=== PATIENT | male | born 1935 | race Caucasian/White ===

== ENCOUNTER 2016-08-23 10:25 | Day surgery (SDC) | payer MEDICARE ==
[~2016-08-23] VITALS: Ht 172.7 cm; Wt 88.0 kg
[~2016-08-23 10:25] MED LIST: 0.9% Sodium Chloride 1,000 ML IV PRN; AMLO10TA3 PO; ASPI-973 PO; ATOR80TA PO; CHOL100045 PO; CLOP75TA28 PO; CLOP75TA3 PO; DOCU250C2 PO; DONE10TA5 PO; DONE5TAB30 PO; FISH1CAP15 PO; HYDR25TA4 PO; LOSA100T29 PO; MECL-114 PO; MEMA5TAB PO; MULT-1018 PO; Sodium Chloride LOK Flush 10 mL Syringe IV PRN; TAMS0.4C98 PO; fentaNYL-PF 50 mCg/mL 2 mL Inj IVPUSH PRN
[2016-08-23 10:48] VITALS: BP 138/75; PULSE 65; RESP 15; O2SAT 98
[2016-08-23] MEDS ORDERED: 0.9% Sodium Chloride 1,000 ML IV ONE (12:29)
[2016-08-23 13:12] VITALS: BP 109/53; PULSE 74; RESP 14; O2SAT 97
[2016-08-23 13:27] VITALS: BP 110/57; PULSE 62; RESP 12; O2SAT 99
[2016-08-23 13:29] VITALS: BP 139/87; PULSE 69; RESP 12; O2SAT 98
--- NOTE | 2016-08-23 19:57 | ENDO ---
[address] [address] ENDOSCOPY PROCEDURE PATIENT: ARLIN SANDHU : 1935 MR#: [id number] ADMIT: 08/23/2016 JOB ID: [id number] DATE: 08/23/2016 PRIMARY PROVIDER: Barak Gipson MD PROCEDURE: 1. Colonoscopy. 2. Hot snare polypectomy and hot forceps application. INDICATIONS: An 81-year-old male with a personal history of colon polyps returns for surveillance. EQUIPMENT: PCF H 180 AL. SEDATION: 1. 2 mg Versed. 2. 50 mcg fentanyl. COMPLICATIONS: None identified. BOWEL PREPARATION: Fair, adequate exam. PROCEDURE INFORMATION: After the risks and benefits were explained, written and verbal informed consent was obtained. The patient was brought into the endoscopy suite and placed into the left lateral decubitus position. Sedation was achieved using the above-stated medications with the addition of oxygen via nasal cannula. A digital rectal examination was accomplished. Grade 3 and grade 4, nonbleeding, nonthrombosed hemorrhoids were noted. The scope was introduced into the rectum and advanced under direct visualization to the level of the cecum, as identified by the appendiceal orifice and ileocecal valve. The scope was slowly withdrawn to carefully examine the mucosa for any defects or lesions. Retroflexed views were accomplished in the rectum. The colon was decompressed. The scope removed from the patient who tolerated the procedure well. FINDINGS: In the ascending colon, there was a sessile, perhaps 8 x 4 mm, flat polyp removed with hot snare. There was a small fragment that seemed to be left over. After our initial snare, we had to take a 2nd hot snare piece from this location. I then touched up a little residual mild bleeding with the hot forceps. There was a second polyp that was closeby in the ascending colon, perhaps about 5 mm in size, flat, subtle. Hot snare was utilized. A small fragment of this polyp seemed to escape the clutches of the snare and we ablated this with the hot forceps as well. No other significant pathology was appreciated throughout including retroflexed views from within the rectum. ENDOSCOPIC DIAGNOSES: 1. Colon polyps. 2. Hemorrhoids. RECOMMENDATIONS: 1. Await histopathology. 2. Consider repeat colonoscopy in three years' time considering the only fair bowel prep today. 3. I would recommend continuing to hold the Plavix for perhaps another three or four days.
--- NOTE | 2016-08-24 14:08 | PATH ---
SURGICAL PATHOLOGY Attending Physician:Dorene Morris CASE STATUS: Signed Out PATIENT NAME: ARLIN ASNDHU PID: [id number] : 1935 DATE COLLECTED:08/23/2016 21:30 SPECIMEN: Colon, Biopsy CLINICAL HISTORY: 1). COLON POLYPS FINAL DIAGNOSIS: 1.COLON POLYPS: TUBULAR ADENOMA, MULTIPLE FRAGMENTS. ICD10 CODE D12.6 GROSS DESCRIPTION: The specimen is received in one formalin filled container labeled with the patient's name, sublabeled "colon polyps" and consists of multiple portions of tissue which aggregate to 0.4 x 0.4 x 0.3 CM. The specimen is entirely submitted in one cassette. 08/23/2016 [facility] MICRO DESCRIPTION: See diagnosis. ICD-9 CODES: CPT CODES: 1: 83899 Electronically Signed Out Belinda Rodriguez MD [facility] Pathology [facility], [place] [address] Technical component performed at [facility], [address] [place] [address] Ave[address], [place], [address]
[2016-10-29] MEDS ORDERED: NAM10 PO (11:58)
[2016-10-29] MEDS ORDERED: CETI5TAB28 PO (11:58)
[2016-10-29] MEDS ORDERED: NAPR220C11 PO (11:58)
== END 2016-08-23 23:59 | disposition home or self-care (01) ==
LOC: END 10:25
PROVIDERS: ATTEND Internal Medicine Gastroenterology
DX: Z12.11 Encounter for screening for malignant neoplasm of colon (principal); D12.2 Benign neoplasm of ascending colon; K64.2 Third degree hemorrhoids; K64.3 Fourth degree hemorrhoids; Z86.010 Personal history of colon polyps; I12.9 Hypertensive chronic kidney disease with stage 1 through stage 4 chronic kidney disease, or unspecified chronic kidney disease; E78.5 Hyperlipidemia, unspecified; N40.0 Benign prostatic hyperplasia without lower urinary tract symptoms; G47.33 Obstructive sleep apnea (adult) (pediatric); Z86.73 Personal history of transient ischemic attack (TIA), and cerebral infarction without residual deficits; N18.2 Chronic kidney disease, stage 2 (mild); K21.9 Gastro-esophageal reflux disease without esophagitis; G31.84 Mild cognitive impairment of uncertain or unknown etiology; K44.9 Diaphragmatic hernia without obstruction or gangrene; M10.9 Gout, unspecified; E55.9 Vitamin D deficiency, unspecified; E66.9 Obesity, unspecified; Z68.32 Body mass index [BMI] 32.0-32.9, adult; Z79.02 Long term (current) use of antithrombotics/antiplatelets
CPT/HCPCS: 45385; 88305; G0500; J7030

== ENCOUNTER 2016-11-01 12:47 | Day surgery (SDC) | payer MEDICARE ==
[~2016-11-01] VITALS: Ht 172.7 cm; Wt 88.5 kg
[~2016-11-01 12:47] MED LIST changes: -0.9% Sodium Chloride 1,000 ML IV PRN; -ASPI-973 PO; +CETI5TAB28 PO; -CLOP75TA28 PO; -DOCU250C2 PO; -DONE5TAB30 PO; -MECL-114 PO; -MEMA5TAB PO; +NAM10 PO; +NAPR220C11 PO
[2016-11-01 13:56] VITALS: BP 122/74; PULSE 64; O2SAT 96
[2016-11-01] MEDS: 0.9% Sodium Chloride 1,000 ML IV SCH ×2 (14:13→14:36)
[2016-11-01 14:39] VITALS: BP 122/70; PULSE 62; RESP 15; O2SAT 92
[2016-11-01 14:50] VITALS: BP 127/73; PULSE 62; RESP 15; O2SAT 94
[2016-11-01 15:00] VITALS: BP 134/68; PULSE 60; RESP 15; O2SAT 96
--- NOTE | 2016-11-01 23:48 | ENDO ---
[address] [address] ENDOSCOPY PROCEDURE PATIENT: ARLIN SANDHU : 1935 MR#: [id number] ADMIT: 11/01/2016 JOB ID: [id number] PRIMARY PROVIDER: Barak Gipson MD PROCEDURE: Esophagogastroduodenoscopy with biopsy. INDICATIONS: An 81-year-old male with symptoms of intermittent dysphagia. Improved with PPI. EQUIPMENT: GIF-Q180. SEDATION: 1.5 mg Versed, 50 mcg fentanyl. COMPLICATIONS: None identified. PROCEDURE INFORMATION: After the risks and benefits were explained, written and verbal informed consent was obtained. The patient was brought into the endoscopy suite and placed into the left lateral decubitus position. Sedation was achieved using the above-stated medications with the addition of oxygen via nasal cannula and lidocaine swish and swallow. The scope was introduced into the mouth through the bite block, and advanced to the second portion of the duodenum. The scope was slowly withdrawn to carefully examine the mucosa for any defects or lesions. Retroflexed views were accomplished in the stomach. The stomach was decompressed, the scope removed from the patient who tolerated the procedure well. FINDINGS: 1. Duodenum: No significant pathology was identified from the bulb through to the second portion. 2. Stomach: The patient had some scattered erosive changes throughout. Minimal diffuse gastropathy. No ulcers. No mass lesions. No outlet obstruction. Random biopsy was taken for exclusion of Helicobacter or other pathology. Retroflexed views of the LES disclosed sliding hiatal hernia. 3. Esophagus: The squamocolumnar junction correlated with the top of the gastric folds. I did not visually see the Schatzki's ring at all during today's case. The GEJ was at about 39 cm from the incisors. The pinchcock was at about 42 cm from the incisors. No acute erosive changes. No strictures. No mass lesions. ENDOSCOPIC DIAGNOSES: 1. Sliding hiatal hernia. 2. Mild erosive gastropathy. RECOMMENDATIONS: 1. Await histopathology. 2. Continue proton pump inhibitor therapy. 3. Follow up on clinical results in the next six weeks or so in my office.
--- NOTE | 2016-11-03 13:52 | PATH ---
SURGICAL PATHOLOGY Attending Physician:Dorene Morris CASE STATUS: Signed Out PATIENT NAME: ARLIN SANDHU PID: [id number] : 1935 DATE COLLECTED:11/01/2016 00:00 SPECIMEN: Gastric, Biopsy CLINICAL HISTORY: DYSPHAGIA, GASTRIC EROSIONS 1). GASTRIC BIOPSY FINAL DIAGNOSIS: 1.GASTRIC BIOPSY: MINIMAL CHRONIC GASTRITIS INVOLVING FUNDIC MUCOSA. Negative for definitive evidence of epithelial erosion. Negative for evidence of Helicobacter. Negative for intestinal metaplasia. Negative for dysplasia and malignancy. ICD10 K29.70 GROSS DESCRIPTION: The specimen is received in one formalin filled container labeled with the patient's name, sublabeled "gastric" and consists of a 0.2 x 0.2 x 0.2 CM portion of tissue which is entirely submitted in one cassette. 11/02/2016 [facility] MICRO DESCRIPTION: See diagnosis. ICD-9 CODES: CPT CODES: 1: 31921 Electronically Signed Out Paul Sharpe MD [facility] Pathology [facility] [address], [place] [address] Technical component performed at [facility], [facility] [address], [place], [address]
== END 2016-11-01 23:59 | disposition home or self-care (01) ==
LOC: END 12:47
PROVIDERS: ATTEND Internal Medicine Gastroenterology
DX: R13.10 Dysphagia, unspecified (principal); K29.50 Unspecified chronic gastritis without bleeding; K44.9 Diaphragmatic hernia without obstruction or gangrene; N18.2 Chronic kidney disease, stage 2 (mild)
CPT/HCPCS: 43239; G0500; J7030